=== PATIENT | female | born 1935 | race Caucasian/White ===

== ENCOUNTER 2018-01-04 05:57 | Inpatient (IN) | payer MEDICARE, BC ==
[2018-01-04] MEDS ORDERED: Famotidine IV* 10 MG/ML 2 ML (20 mg) IV SLOW PU ONE (06:00)
[2018-01-04] MEDS ORDERED: Buffered Lidocaine 0.9% SYRIN* 5 ML/SYR SYRINGE INTRADERM ONE (06:00)
--- OUTSIDE RECORDS SUMMARY | 2018-01-04 06:03 | XMS REPORT ---
:1935 External Reference #:[id number] Author Organization [employer] Address [address] [facility] [address] [place] [address] [place] [address] Phone [phone] Care Team Providers Name Role Phone Keiry Wesley MD Primary Care Physician Unavailable Payers Type Date Identification Numbers Payment Provider Subscriber Medicare Primary Policy Number: [id number] Medicare Violet Samaniego PayID: [id number] [address] [place] [address] Medigap Part B Policy Number: [id number] [facility] Violet Samaniego PayID: [id number] [address] [place] [address] Problems Date Description Provider Status Onset: 11/20/2017 Localized, 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 Family History Date Family Member(s) Problem(s) Comments General Cancer General Esophagus Cancer General Breast Cancer General Stomach Cancer General Heart Disease Social History Type Date Description Comments Lives With Alone Occupation Retired ETOH Use Denies alcohol use Smoking Patient is a former smoker Exercise Type/Frequency Does not exercise Allergies, Adverse Reactions, Alerts Date Description Reaction Status Severity Comments 11/20/2017 NKDA active Medications Medication Date Status Form Strength Qnty SIG Indications Ordering Provider Mesalamine Active Tablets DR 1.2gm 2 tab Unknown 000 daily Modafinil Active Tablets 200mg 1 bid Unknown 000 Venlafaxine Active Tablets 75mg 2 tab at Unknown HCL 000 h.s. Vitamin D3 Active Tablets [id number] one by Unknown Ultra Potency 000 mouth once monthly Ibandronate Active Tablets 150mg take 1 Unknown Sodium 000 tablet by mouth once a month Vitamin D Active Unknown 000 Tramadol Active Tablets 37.5-325mg 1-2 tab Unknown Hydrochloride/ 000 by mouth Acetaminophen every 4-6 hours as needed Naproxen Active Tablets 220mg take 1 Unknown 000 tab every 12 hours as needed for pain. Etodolac Hx Capsules 300mg take one Unknown 000 - capsule by mouth 018 twice a day as needed Vital Signs Date Vital Result Comment 12/16/2017 Height 67 inches 5'7" Weight 144.00 lb Heart Rate 84 /min BP Systolic 146 mmHg BP Diastolic 90 mmHg BMI (Body Mass Index) 22.6 kg/m2 11/20/2017 Height 67 inches 5'7" Weight 144.00 lb Heart Rate 88 /min BP Systolic Recheck 128 mmHg BP Diastolic Recheck 84 mmHg Respiratory Rate 20 /min Body Temperature 98.7 F BMI (Body Mass Index) 22.6 kg/m2 Results Test Date Test Result H/L Range Note Urinalysis Profile 12/22/2017 Urine Color Yellow 1 Urine Appearance Clear 1 Urine Specific [place] 1.012 1.010-1.030 1 Urine pH 5.0 5-9 1 Urine Urobilinogen Negative Negative 1 Urine Ketones Negative Negative 1 Urine Protein Negative Negative 1 Urine Leukocytes Negative Negative 1 Urine Blood Negative Negative 1 Urine Nitrite Negative Negative 1 Urine Bilirubin Negative Negative 1 Urine Glucose Negative Negative 1 CBC Auto Diff 12/22/2017 White Blood Count 5.2 10^3/uL 3.5-10.8 1 Red Blood Count 4.34 10^6/uL 4.00-5.40 1 Hemoglobin 13.5 g/dL 12.0-16.0 1 Hematocrit 40 % 35-47 1 Mean Corpuscular Volume 92 fL 80-97 1 Mean Corpuscular Hemoglobin 31 pg 27-31 1 Mean Corpuscular HGB Conc 34 g/dL 31-36 1 Red Cell Distribution Width 14 % 10.5-15 1 Platelet Count 283 10^3/uL 150-450 1 Mean Platelet Volume 7.8 um3 7.4-10.4 1 Abs Neutrophils 3.0 10^3/uL 1.5-7.7 1 Abs Lymphocytes 1.4 10^3/uL 1.0-4.8 1 Abs Monocytes 0.6 10^3/uL 0-0.8 1 Abs Eosinophils 0.1 10^3/uL 0-0.6 1 Abs Basophils 0 10^3/uL 0-0.2 1 Abs Nucleated RBC 0 10^3/uL 1 Granulocyte % 57.6 % 38-83 1 Lymphocyte % 26.9 % 25-47 1 Monocyte % 12.0 % High 0-7 1 Eosinophil % 2.9 % 0-6 1 Basophil % 0.6 % 0-2 1 Nucleated Red Blood Cells % 0.5 1 Type & Screen 12/22/2017 Patient Blood Type B Positive 1 Antibody Screen NEGATIVE 1 Inr/Protime 12/22/2017 Inr 0.94 0.77-1.02 1 Laboratory test finding 12/22/2017 Partial Thrombo Time 30.4 seconds 26.0 -36.3 1, 2 PTT Comp Metabolic Panel 12/22/2017 Sodium 136 mmol/L 135-145 1 Potassium 4.3 mmol/L 3.5-5.0 1 Chloride 100 mmol/L Low 101-111 1 Co2 Carbon Dioxide 29 mmol/L 22-32 1 Anion Gap 7 mmol/L 2-11 1 Glucose 87 mg/dL 70-100 1 Blood Urea Nitrogen 20 mg/dL 6-24 1 Creatinine 0.65 mg/dL 0.51-0.95 1 BUN/Creatinine Ratio 30.8 High 8-20 1 Calcium 9.4 mg/dL 8.6-10.3 1 Total Protein 6.4 g/dL 6.4-8.9 1 Albumin 4.3 g/dL 3.2-5.2 1 Globulin 2.1 g/dL 2-4 1 Albumin/Globulin Ratio 2.0 1-3 1 Total Bilirubin 0.40 mg/dL 0.2-1.0 1 Alkaline Phosphatase 106 U/L High 34-104 1 Alt 10 U/L 7-52 1 Ast 15 U/L 13-39 1 Egfr Non- 87.7 >60 1 Egfr 106.1 >60 1, 3 Urine Culture And Sensitivities 12/22/2017 Urine Culture SEE RESULT BELOW 1, 4 1 AA 01/04 2 AA 01/04 3 Because ethnic data is not always readily available, this report includes an eGFR for both -Americans and non- Americans. The National Kidney Disease Education Program (NKDEP) does not endorse the use of the MDRD equation for patients that are not between the ages of 18 and 70, are , have extremes of body size, muscle mass, or nutritional status, or are non- or non-. According to the National Kidney Foundation, irrespective of diagnosis, the stage of the disease is based on the level of kidney function: Stage Description GFR(mL/min/1.73 m(2)) 1 Kidney damage with normal or decreased GFR 90 2 Kidney damage with mild decrease in GFR 60-89 3 Moderate decrease in GFR 30-59 4 Severe decrease in GFR 15-29 5 Kidney failure <15 (or dialysis) 4 SEE RESULT BELOW Name: VIOLET SAMANIEGO : [address]: Boy Orr MD Acct: [id number] Unit: [id number] AGE: 82 Location: [facility] Re12/22/17 SEX: F Status: REG REF SPEC: [id number] NENA: 12/22/17-[address] [facility] [address]: Boy Orr MD REQ: [id number] RECD: 12/22/17-1411 STATUS: GENA ROWELL DR: Keiry Wesley MD _ SOURCE: URINE SPDESC: ORDERED: Urine Culture COMMENTS: MABLE 01/04 QUERIES: Urine Source: Clean Catch Procedure Result Reported Site Urine Culture Final 12/23/17- 1213 ML No Growth (<1,000 CFU/mL) * ML - Main Lab . END OF REPORT DEPARTMENT OF PATHOLOGY, [address] [place] [address] Woody Barth M.D. 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 at [facility]12/16/2017 - HORACE Brown-[id number] Unilateral osteoarth resulting from hip dysplasia, right hipFollow up:Follow up: to or
--- OUTSIDE RECORDS SUMMARY | 2018-01-04 06:03 | XMS REPORT ---
:1935 External Reference #:[id number] Author Organization [employer] Address [address] [facility] [place] [address] [place] [address] Phone [phone] Care Team Providers Name Role Phone Keiry Wesley MD Primary Care Physician Unavailable Payers Type Date Identification Numbers Payment Provider Subscriber Medicare Primary Policy Number: [id number] Medicare Violet Samaniego PayID: [id number] [address] [place] [address] Medigap Part B Policy Number: [id number] [facility] Violet Samaniego PayID: [id number] [address] [place] [address] Problems Date Description Provider Status Onset: 11/20/2017 [...] HCL 000 h.s. 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 at [facility]12/16/2017 - HORACE Brown-[id number] Unilateral osteoarth resulting from hip dysplasia, right hipFollow up:Follow up: to or
[2018-01-04] MEDS ORDERED: ceFAZolin 2 GM in NS PREMIX(*) 2 GM/100 ML BAG IVPB ONE (06:24)
[2018-01-04] MEDS ORDERED: Famotidine IV* 10 MG/ML 2 ML (20 mg) ONE (06:55)
[2018-01-04] MEDS ORDERED: Bupivacaine 0.25% EPI 200,000* 30 ML SDV ONE (07:24)
[2018-01-04] MEDS ORDERED: fentaNYL* 50 MCG/ML 2 ML VIAL (100 MCG VIAL) ONE ×2 (07:30→08:20)
[2018-01-04] MEDS ORDERED: Midazolam* 1 MG/ML 5 ML VIAL (5 MG) ONE (07:31)
[2018-01-04] MEDS ORDERED: KETAMINE HCL* 50 MG/ML 10 ML VIAL ONE (07:54)
[2018-01-04] MEDS ORDERED: Dexamethasone IV* 4 MG/ML 1 ML (4 MG) ONE (08:10)
[2018-01-04] MEDS ORDERED: EPHEDrine (Pressors)* 50 MG/ML VIAL ONE (08:10)
[2018-01-04] MEDS ORDERED: Ketorolac INJ* 30 MG/ML 1 ML VIAL ONE (08:10)
[2018-01-04] MEDS ORDERED: Succinylcholine* 20 MG/ML 10 ML VIAL ONE (08:10)
[2018-01-04] MEDS ORDERED: Lidocaine 2% PF * 5 ML VIAL ONE (08:10)
[2018-01-04] MEDS ORDERED: Ondansetron INJ* 2 MG/ML VIAL ONE (08:10)
[2018-01-04] MEDS ORDERED: Propofol* 10 MG/ML 20 ML BTL IV PUSH ONE (08:10)
[2018-01-04] MEDS ORDERED: DiMENhydriNATE IV* 50 MG/ML VIAL ONE (08:10)
[2018-01-04] MEDS ORDERED: Naloxone* 0.4 MG/ML 1 ML VIAL IV PRN (08:38)
[2018-01-04] MEDS ORDERED: oxyCODONE/Acetamin 5/325 MG* TAB PO PRN (08:38)
[2018-01-04] MEDS ORDERED: DiMENhydriNATE IV* 50 MG/ML VIAL IV PUSH PRN (08:38)
[2018-01-04] MEDS ORDERED: HYDROmorphone INJ1* 1 MG/ML SYRINGE IV PRN (08:38)
[2018-01-04] MEDS ORDERED: HYDROmorphone INJ1* 1 MG/ML SYRINGE ONE (09:20)
[2018-01-04] MEDS ORDERED: Senna TAB PO PRN (09:51)
[2018-01-04] MEDS ORDERED: diPHENhydraMINE PO* 25 MG PO PRN (09:51)
[2018-01-04] MEDS ORDERED: Morphine INJ* 2 MG/ML 1 ML SYRINGE (TWO MG - NEW SYRINGE VERSION) IV PRN (09:51)
[2018-01-04] MEDS ORDERED: Magnesium Hydroxide LIQ* 30 ML UDC PO PRN (09:51)
[2018-01-04] MEDS ORDERED: Ondansetron ODT TAB* 4 MG PO PRN (09:51)
[2018-01-04] MEDS ORDERED: Cyclobenzaprine TAB* 10 MG PO PRN (09:51)
[2018-01-04] MEDS ORDERED: Ondansetron INJ* 2 MG/ML VIAL IV PRN (09:51)
[2018-01-04] MEDS ORDERED: oxyCODONE TAB* 5 MG TAB PO PRN (09:51)
[2018-01-04] MEDS ORDERED: IBANDRONATE 150 MG PO SCH (10:00)
[2018-01-04] MEDS ORDERED: D5W 1/2 NS 1000 ML BAG* 1,000 ML IV SCH (10:00)
--- NOTE | 2018-01-04 10:54 | RAD ---
HISTORY: sp right total hip replacement COMPARISONS: November 20, 2017 VIEWS: 1 , Single frontal view of the pelvis FINDINGS: BONE DENSITY: There is diffuse osteopenia. BONES: The patient is status post right hip arthroplasty. On this single frontal projection, there is no appreciable hardware failure or osteolysis. JOINTS: There is no arthropathy. ALIGNMENT: There is no dislocation. SOFT TISSUES: There is postsurgical change to the soft tissues. OTHER FINDINGS: None. IMPRESSION: STATUS POST RIGHT HIP ARTHROPLASTY.
[2018-01-04] MEDS: traMADol TAB* 50 MG PO SCH ×3 (13:28→21:02)
[2018-01-04] MEDS: Acetaminophen TAB* 325 MG PO SCH ×3 (13:30→23:17)
--- NOTE | 2018-01-04 14:22 | OP ---
DATE OF OPERATION: 01/04/18 - ROOM #[id number] DATE OF : 39 SURGEON: Boy Orr MD SPARE HAND: Nasreen Gallegos RPA ANESTHESIA: General endotracheal. PRE-OP DIAGNOSIS: Osteoarthritis, right hip. POST-OP DIAGNOSIS: Osteoarthritis, right hip. OPERATIVE PROCEDURE: Right total hip arthroplasty. INDICATIONS: Ms. Samaniego is an 82-year-old female who has been having continued troubles with right hip pain. She has significant end-stage arthritic changes by x-ray, and has been significantly limited in her ability to get around, walk, and was very interested in having something done to improve her quality of life. I discussed with her that a total hip arthroplasty should work well to get rid of that groin pain, so that she could exercise better and hopefully take better care of her back, which is also giving her significant troubles. Risks of surgery such as infection, scar formation, stiffness, DVT, instability, and continued leg-length discrepancy were discussed. She was short already, and I discussed with her that I would try to lengthen her a little bit but try and restore some of her leg length. She had been declared medically optimized and wished to proceed. ESTIMATED BLOOD LOSS: 100 cc. COMPLICATIONS: None. HARDWARE: Jigna M/L Taper #15 stem, 52-mm Continuum cup, 2 screws, 15-degree elevated liner +0, 36-mm head. DESCRIPTION OF PROCEDURE: The patient was brought to the OR and general endotracheal anesthesia was established. Lugo catheter was placed. She was then rolled into the left lateral decubitus position and an axillary roll was placed. She was on the pegboard, the posts were placed and the gel padding was also placed. She seemed nice and secure and nicely padded. Right hip area was prepped and then draped. Skin over the incisional area was infiltrated using 0.25% Marcaine with epinephrine and a total of 30 cc would be used as an additional 15 cc would be placed about the hip after the implants were placed. Incision was carried down through the skin and subcutaneous tissues. Small bleeders encountered were ligated using electrocautery. Fascia was exposed and sharply incised. Greater trochanteric bursa was taken down using electrocautery and nice exposure of the short external rotators was obtained after placement of a Hohmann retractor. Short external rotators were taken down from the posterior aspect of the greater trochanter and capsule was nicely seen. T-capsulotomy was made and quite a bit of clear thick yellowish joint fluid was encountered, quite a few osteophytes were also immediately evident. Hip was then easily dislocated and cutting guide was placed. Osteophytes, however, were so significant I could not seat the cutting guide nicely and the rongeur had to be used to take down from the osteophytes about this femoral head. Once this was done, cutting guide was placed and the femoral neck was marked. Reciprocating saw was used to resect the femoral head and this was handed off. Anterior C-retractor was placed as was an inferior Hohmann and nice exposure of the acetabulum was obtained. Labrum was sharply taken down and the acetabulum looked very similar to the x-rays where there was bone buildup medially. I did not have the usual fossa in the acetabulum for a landmark. Beginning with a 44 reamer, I first medialized some and got into nice bleeding bone. I then angled coming approximately 45 degrees and 20 degrees for anteversion and started expanding with the reamers. Again, nice rim of bleeding bone was obtained and at a 51, I seemed to have a nice [id number] fit. 50 trial was placed and it sat very nicely and it appeared I have would have good contact all about the cup. She had been templated for a 50 cup and an 11 or 12 size stem as it was seemed to be an in-between size. There was, however, no hard reference on the x-rays and I had to use the standard 15% enlargement to guess the relative size. 52 cup was then impacted into place. Two screws were placed and a wonderful bite was obtained. Flat liner was placed and attention was turned to the proximal femur. Box osteotome was used to open the femoral canal, a canal finder was easily passed. Beginning with a 4 broach, she was progressively broached and at an 11, I still countersunk a little bit. 12.5 was seated and then trying to do a little bit of twisting, I was able to get a little bit of motion. 13.5 was placed and this seemed to have a nice snug fit. Standard neck with a minus head was placed first and her stability was tested. She came up nicely into hyperflexion, but at about 110 degrees, would start to lever out. Similarly with the hip at 90 degrees of flexion, internal rotation at 45 degrees, she began to lever out and for adduction, she had that same 45-degree levering. Extension seemed nice and stable. Hip was then dislocated and it could be seen that the stem was a little bit loose. 15 was placed as was an elevated liner. Taking her through the motion, she now had wonderful stability where she did not come out even at 90 degrees of internal rotation, at 90 degrees could be hyperflexed, staying nicely in joint. With dislocation now, stem sat perfectly where there was no loosening at all. 15 stem and an elevated liner were called for. Elevated liner was placed as was the stem. She was trialed again with a 0 and I had a little bit of length, which I liked as well as excellent stability. Hip was copiously pulse lavaged and a 0, 36-mm head was then impacted into place. Hip was then located and again copiously pulse lavaged. Capsule and short external rotators with piriformis were repaired to the backside of the greater trochanter. Fascia was closed using interrupted #1 Vicryl sutures. Hip was again copiously pulse lavaged and subcutaneous tissues were approximated using 2-0 Vicryl, skin was closed using hernandez. Sterile dressing was applied. The patient was then rolled flat and was extubated in the OR. She was then stable on transfer to the recovery room. [id number]/[facility] #: [id number] MICHAEL
[2018-01-04] MEDS: ceFAZolin 1 GM in Dextrose (*) 1 GM/50 ML BAG IVPB SCH ×2 (16:54→23:33)
[2018-01-04] MEDS ORDERED: Warfarin TAB(*) 10 MG PO ONE (17:00)
[2018-01-04] MEDS: Docusate CAP* 100 MG PO SCH (20:54)
[2018-01-04] MEDS ORDERED: Venlafaxine EXT RELEASE CAP* 75 MG PO SCH (21:00)
[2018-01-04] MEDS: Magnesium Hydroxide LIQ* 30 ML UDC PO SCH (21:02)
[2018-01-05] MEDS: traMADol TAB* 50 MG PO SCH ×4 (02:06→20:56)
[2018-01-05 05:57] LABS: Hematocrit 29 % (35-47); Hemoglobin 9.9 g/dl (12.0-16.0); Mean Platelet Volume 7.1 um3 (7.4-10.4); Platelet Count 204 10^3/ul (150-450)
[2018-01-05 06:03] LABS: INR 1.07 (0.77-1.02)
[2018-01-05] MEDS: Modafinil TAB* 100 MG PO SCH ×2 (06:03→12:04)
[2018-01-05] MEDS: Acetaminophen TAB* 325 MG PO SCH ×3 (06:03→20:56)
[2018-01-05 06:54] LABS: EGFR Non-African American 86.2 (>60)
[2018-01-05] MEDS: ceFAZolin 1 GM in Dextrose (*) 1 GM/50 ML BAG IVPB SCH (07:52)
[2018-01-05] MEDS: Magnesium Hydroxide LIQ* 30 ML UDC PO SCH ×2 (08:34→20:58)
[2018-01-05] MEDS: Docusate CAP* 100 MG PO SCH ×2 (08:34→20:56)
[2018-01-05] MEDS: Venlafaxine EXT RELEASE CAP* 75 MG PO SCH (08:34)
[2018-01-05] MEDS ORDERED: MESALAMINE PO SCH (09:00)
--- NOTE | 2018-01-05 09:27 | PN ---
Progress Note - Progress Note Date of Service: 01/05/18 SOAP: Subjective: [Pt was seen today lying in bed. Pt states that pain in the hip is minimal. She states she is surprised by how little pain she is currently having. Currently taking tramadol for pain relief with very good effect. She states she has a good apetite at this point. Denies any chest pain, SOB, nausea or vomiting.] Objective: [General: A&Ox3, NAD MSK, LLE: Inspection reveals a dressing that is clean dry and intact without any surrounding erythema. +df/pf. Calf soft and non tender. Abduction pillow in place currently. NVI, 2+ DP pulse. ] Vital Signs Temp 98.6 F 01/05/18 11:19 Pulse 86 01/05/18 11:19 Resp 16 01/05/18 12:09 BP 105/65 01/05/18 11:19 Pulse Ox 99 01/05/18 11:19 Intake & Output 01/04/18 01/05/18 01/05/18 18:59 06:59 18:59 Intake Total 220 2157 1385 Output Total 200 1525 300 Balance 20 632 1085 Intake: IV Fluids 629 543 7573 ABX - CEFAZOLIN 50 D5W 1/2 NS 982 975 NS 100ML, Cefazolin 2G 100 IVPB 55 ABX - CEFAZOLIN 55 Oral 120 1120 360 Output: Urine 300 Lugo 200 1525 Other: # Bowel Movements 0 Assessment: [POD 1 LTHA ] Plan: [- Continue with tramadol for pain - Finish post op abx - PT/OT - 6mg of coumadin tonight ]
[2018-01-05] MEDS: Heparin VIAL(*) 5000 UNITS/ML VIAL (FIVE THOUSAND) SUBCUT SCH ×2 (12:04→20:58)
[2018-01-05] MEDS ORDERED: Warfarin TAB(*) 6 MG PO ONE (17:00)
[2018-01-05] MEDS: PTO:Mesalamine (NF) 1.2 GM TAB PO SCH (17:08)
[2018-01-06] MEDS: traMADol TAB* 50 MG PO SCH ×3 (02:31→14:28)
[2018-01-06] MEDS: Heparin VIAL(*) 5000 UNITS/ML VIAL (FIVE THOUSAND) SUBCUT SCH (03:57)
[2018-01-06 05:09] LABS: Hematocrit 27 % (35-47); Mean Platelet Volume 7.5 um3 (7.4-10.4); Platelet Count 189 10^3/ul (150-450)
[2018-01-06 05:14] LABS: INR 2.34 (0.77-1.02)
[2018-01-06] MEDS: Acetaminophen TAB* 325 MG PO SCH ×2 (06:25→14:27)
[2018-01-06] MEDS: Modafinil TAB* 100 MG PO SCH ×2 (06:26→12:09)
[2018-01-06] MEDS: Magnesium Hydroxide LIQ* 30 ML UDC PO SCH (08:09)
[2018-01-06] MEDS: PTO:Mesalamine (NF) 1.2 GM TAB PO SCH (08:10)
[2018-01-06] MEDS: Venlafaxine EXT RELEASE CAP* 75 MG PO SCH (08:10)
[2018-01-06] MEDS: Docusate CAP* 100 MG PO SCH (08:10)
--- NOTE | 2018-01-06 10:50 | PN ---
Progress Note - Progress Note Date of Service: 01/06/18 SOAP: Subjective: []Patient was seen and examined at bedside. She feels well and desires DC home. VNS care has not yet been verified. Denies chest pain, shortness of breath, dizziness, nausea. Objective: []General: Well appearing, NAD RLE: Right hip dressing changed. Incision CDI with well approximated edges, very mild blood on gauze. Thigh is soft. DF/PF intact. DP2+. Sensation intact distally. BL calves supple and nontender without erythema, edema or palpable cords Assessment: []POD 2 sp right total hip arthroplasty, Dr Orr Plan: []WBAT PT/OT Stop heparin, coumadin 4 mg today DC to home Vital Signs Temp 99.5 F 01/06/18 15:02 Pulse 86 01/06/18 15:02 Resp 16 01/06/18 15:02 BP 110/56 01/06/18 15:02 Pulse Ox 96 01/06/18 15:02 Intake & Output 01/05/18 01/06/18 01/06/18 18:59 06:59 18:59 Intake Total 2325 1060 1260 Output Total 1750 1200 500 Balance 575 -140 760 Intake: IV Fluids 1025 ABX - CEFAZOLIN 50 D5W 1/2 NS 975 Oral 1300 1060 1260 Output: Urine 1750 1200 500 Other: # Bowel Movements 0 Laboratory Last Values Hgb 9.0 g/dl (12.0-16.0) L 01/06/18 05:01 Hct 27 % (35-47) L 01/06/18 05:01 Plt Count 189 10^3/ul (150-450) 01/06/18 05:01 MPV 7.5 um3 (7.4-10.4) 01/06/18 05:01 INR (Anticoag Therapy) 2.34 (0.77-1.02) H 01/06/18 05:01 Sodium 137 mmol/L (135-145) 01/05/18 05:40 Potassium 3.7 mmol/L (3.5-5.0) 01/05/18 05:40 Chloride 104 mmol/L (101-111) 01/05/18 05:40 Carbon Dioxide 27 mmol/L (22-32) 01/05/18 05:40 Anion Gap 6 mmol/L (2-11) 01/05/18 05:40 BUN 14 mg/dL (6-24) 01/05/18 05:40 Creatinine 0.66 mg/dL (0.51-0.95) 01/05/18 05:40 Est GFR ( Amer) 104.3 (>60) 01/05/18 05:40 Est GFR (Non-Af Amer) 86.2 (>60) 01/05/18 05:40 BUN/Creatinine Ratio 21.2 (8-20) H 01/05/18 05:40 Glucose 122 mg/dL (70-100) H 01/05/18 05:40 Calcium 8.3 mg/dL (8.6-10.3) L 01/05/18 05:40
[2018-01-06 15:02] VITALS: BP 110/56
--- NOTE | 2018-01-07 05:54 | DS ---
DISCHARGE SUMMARY: DATE OF ADMISSION: 01/04/18 DATE OF OPERATION: 01/04/18 DATE OF DISCHARGE: 01/06/18 ATTENDING PROVIDER: Dr. Boy Orr.* (DICTATED BY HORACE MCGUIRE) SURGEON: Dr. Boy Orr. SPOT WELDER: HORACE Momin PREOPERATIVE DIAGNOSIS: Osteoarthritis of the right hip. OPERATIVE PROCEDURE: Right total hip arthroplasty. INDICATION: Ms. Samaniego is an 82-year-old female with increasingly severe right hip pain. She has failed conservative management and elected to undergo a right total hip arthroplasty. HOSPITAL COURSE: The patient was admitted to [facility] on . She underwent a right total hip arthroplasty without complication. On postop day 1, she was well-appearing and in no acute distress. Dressing was clean, dry, and intact without any surrounding erythema. Dorsiflexion and plantarflexion intact. Neurovascularly intact distally. On postop day 2 she was well appearing, in no acute distress. Dressing was changed, incision clean , dry, and intact to well approximated wound . Thigh was soft. Sensation intact distally. Dorsiflexion and plantarflexion intact. Hemoglobin 9.0, hematocrit 27, sodium 137, potassium 3.7. Vital Signs: 98.6, pulse rate 90, respiratory rate 16, oxygen saturation 96, blood pressure 100/57. The patient was deemed to be medically and orthopedically stable for discharge home. DISCHARGE MEDICATIONS: 1. 200 mg p.o. b.i.d. 2. Vitamin D3 of 50,000 units once per month. 3. Venlafaxine 75 mg, take 150 mg p.o. at bedtime. 4. 2 mg p.o. daily. 5. Ibandronate 150 mg p.o. monthly. 6. Docusate 100 mg p.o. b.i.d. p.r.n. 7. Acetaminophen 975 mg q.8 hours p.r.n. 8. Tramadol 50 mg p.o. q.6 hours p.r.n. 9. Warfarin 2 mg, 1 to 3 tabs daily depending on INR draws. 10. Tramadol 50 mg every 6 hours as needed, max daily dose of 8. DISCHARGE PLAN: The patient will be weightbearing as tolerated. She will continue hip precautions. Visiting home wheel cutter to draw INR Mondays and . Visiting home nurse to remove hernandez in 10 to 12 days and do wound checks. Can continue physical therapy and occupational therapy exercises as shown. Dosing 01/06/18, 4 mg today. Her INR will be rechecked tomorrow, , for further dosing instructions. Pain control with Ultram 50 mg every 6 hours as needed for pain, max of 8 tabs per day. Wean off Ultram to Tylenol as pain allows. Follow up with Dr. Orr in 4 weeks. Call our office with any concerns. HORACE MCGUIRE [id number]/[facility] #: [id number] MTDD
== END 2018-01-06 15:15 | disposition home health service (06) | DRG 470 ==
LOC: AA 05:57 → SSU 11:38
PROVIDERS: ADMIT Orthopaedic Surgery; ATTEND Orthopaedic Surgery
PROC: 0SR90JZ Replacement of Right Hip Joint with Synthetic Substitute, Open Approach (ICD-10-PCS; principal; 2018-01-04 07:30)
DX: M16.31 Unilateral osteoarthritis resulting from hip dysplasia, right hip (principal); K51.90 Ulcerative colitis, unspecified, without complications; H91.91 Unspecified hearing loss, right ear; M81.0 Age-related osteoporosis without current pathological fracture; F32.9 Major depressive disorder, single episode, unspecified; E78.5 Hyperlipidemia, unspecified; E21.3 Hyperparathyroidism, unspecified; M19.012 Primary osteoarthritis, left shoulder; M19.011 Primary osteoarthritis, right shoulder; G47.411 Narcolepsy with cataplexy; K57.90 Diverticulosis of intestine, part unspecified, without perforation or abscess without bleeding; M19.049 Primary osteoarthritis, unspecified hand; R26.9 Unspecified abnormalities of gait and mobility; M25.751 Osteophyte, right hip; Z98.42 Cataract extraction status, left eye; Z85.3 Personal history of malignant neoplasm of breast; Z98.51 Tubal ligation status; Z82.49 Family history of ischemic heart disease and other diseases of the circulatory system; Z85.848 Personal history of malignant neoplasm of other parts of nervous tissue; Z86.010 Personal history of colon polyps; Z80.3 Family history of malignant neoplasm of breast; Z85.841 Personal history of malignant neoplasm of brain; Z98.41 Cataract extraction status, right eye; Z90.10 Acquired absence of unspecified breast and nipple; Z80.0 Family history of malignant neoplasm of digestive organs; Z81.8 Family history of other mental and behavioral disorders; Z87.891 Personal history of nicotine dependence; Z91.048 Other nonmedicinal substance allergy status
CPT/HCPCS: 36415; 72170; 80048; 85014; 85018; 85049; 85610; 90686; A9270-GY; G8978-GP-CI; G8978-GP-CL; G8979-GP-CI; G8979-GP-CJ; G8980-GP-CI; G8987-GO-CJ; G8988-GO-CI; J0330; J0690; J1100; J1170; J1240; J1644; J1885; J2250; J2405; J2704; J3010